=== PATIENT | female | born 1970 | race Caucasian/White ===

== ENCOUNTER 2021-03-10 12:24 | Day surgery (SDC) | payer BC ==
[2021-03-10] VITALS (9 sets, daily range): BP systolic 109–128; BP diastolic 57–69
[~2021-03-10] VITALS: Ht 162.6 cm; Wt 61.2 kg
[~2021-03-10 12:24] MED LIST: INDOCYANINE GREEN 25 MG/10 ML VIAL IV ONE; VALA500T41 PO; cefazolin/dext.iso 2gm/100ml IV ONE; famotidine 20mg tablet PO ONE; ringers solution, lacted 1,000 ML IV SCH; scopolamine 1mg/72 hr patch TD SCH
--- NOTE | 2021-03-10 13:34 | NUR ---
UNABLE TO SCAN BAR CODE ON SCOPOLAMINE PATCH, PHARMACY AWARE
[2021-03-10 13:42] LABS: BASOPHILS % (AUTO) 0.6 % (0-1); EOSINOPHILS # (AUTO) 0.2 X10'3 (0-0.9); EOSINOPHILS % (AUTO) 1.9 % (0-6); LYMPHOCYTES # (AUTO) 1.6 X10'3 (1.1-4.8); LYMPHOCYTES % (AUTO) 18.8 % (21-51); MEAN CORPUSCULAR HEMOGLOBIN 32.2 PG (27.0-31.0); MEAN CORPUSCULAR VOLUME 94.7 FL (78-98); MONOCYTES # (AUTO) 0.5 X10'3 (0-0.9); MONOCYTES % (AUTO) 5.9 % (2-12); NEUTROPHILS % (AUTO) 72.8 % (42-75); PRE OP HEMATOCRIT 41.4 % (35.0-45.0); PRE OP HEMOGLOBIN 14.1 g/dL (12.0-16.0); PRE OP PLATELET COUNT 225 X10'3 (140-440); RED BLOOD COUNT 4.37 X10'6 (4.20-5.60); RED CELL DISTRIBUTION WIDTH 12.8 % (11.5-14.5)
[2021-03-10 13:57] LABS: ALBUMIN 3.9 G/DL (3.4-5.0); ALBUMIN/GLOBULIN RATIO 1.3 (1.1-1.5); ALKALINE PHOSPHATASE 66 IU/L (46-116); BLOOD UREA NITROGEN 11 MG/DL (7-18); BUN/CREATININE RATIO 13.8 (6.6-38.0); CHLORIDE 106 MMOL/L (99-107); PRE OP ALT 25 U/L (30-65); PRE OP ANION GAP 9 (8-16); PRE OP AST 23 U/L (10-37); PRE OP BILIRUB, TOTAL 0.6 MG/DL (0.0-1.0); PRE OP GLUCOSE 87 MG/DL (70-104); PRE OP POTASSIUM 3.9 MMOL/L (3.4-5.1); PRE OP SODIUM 141 MMOL/L (135-145); TOTAL CARBON DIOXIDE 25.7 MMOL/L (24-32); eGFR 76 ML/MIN
[2021-03-10] MEDS ORDERED: acetaminophen 1,000mg/100ml IV 100 ML IV PRN (14:25)
[2021-03-10] MEDS ORDERED: meperidine/PF 25mg/ml syringe IV PRN ×3 (14:25)
[2021-03-10] MEDS ORDERED: hydrALAZINE 20mg/ml inj. IV PRN (14:25)
[2021-03-10] MEDS ORDERED: morphine 2 MG/ML inj. syringe IV PRN (14:25)
[2021-03-10] MEDS ORDERED: ondansetron/PF 4mg/2ml inj IV PRN (14:25)
[2021-03-10] MEDS ORDERED: ketorolac trometh. 30mg/ml inj. IV ONE (14:25)
[2021-03-10] MEDS ORDERED: ringers solution, lacted 1,000 ML IV SCH (14:25)
[2021-03-10] MEDS ORDERED: proCHLORperazine 10 MG/2 ml inj IV PRN (14:25)
[2021-03-10] MEDS ORDERED: morphine 4 MG/ML inj SYRINge IV PRN (14:25)
[2021-03-10] MEDS ORDERED: labetalol 20mg/4ml (5mg/ml) syringe IV PRN (14:25)
[2021-03-10 14:31] LABS: HCG SERUM QL NEGATIVE
[2021-03-10] MEDS ORDERED: LIDOcaine 1% 30ml preserv. free vial ONE (15:38)
[2021-03-10] MEDS ORDERED: BUPIVAcaine 0.5% inj/PF 30 ML ONE (15:38)
[2021-03-10] MEDS ORDERED: sevoflurane 250ml liquid IH ONE (15:45)
[2021-03-10] MEDS ORDERED: midazolam 1 mg/ML 2ml injection ONE (15:48)
[2021-03-10] MEDS ORDERED: fentaNYL /PF 50mcg/ml 5ml ampule ONE (16:03)
[2021-03-10] MEDS ORDERED: rocuronium 10mg/ml inj IV ONE (16:03)
[2021-03-10] MEDS ORDERED: LIDOcaine 2% (20mg/ml) 5ml vial ONE (16:03)
[2021-03-10] MEDS ORDERED: dexamethasone sod phosphate 4mg/ml inj. ONE (16:03)
[2021-03-10] MEDS ORDERED: propofol inj 20 ML IV ONE (16:03)
[2021-03-10] MEDS ORDERED: ondansetron/PF 4mg/2ml inj ONE (16:03)
[2021-03-10] MEDS ORDERED: neostigmine methylsulfate 1 MG/ML 10ml vial ONE (16:43)
[2021-03-10] MEDS ORDERED: glycopyrrolate 0.2mg/ml inj ONE (16:43)
[2021-03-10] MEDS ORDERED: oxyCODONE/APAP 5-325mg tablet PO PRN (17:00)
--- NOTE | 2021-03-10 17:01 | NUR ---
Received from OR via [facility] , accompanied by Anesthesiologist ADALGISA and report given by Anesthesiolgist. PATIENT WITH 20G PIV IN RIGHT UE RUNNING LR AT 100. 3 ABDOMINAL BANDAIDS THAT ARE CDI. 10L MASK ON WITH 100% SATURATIONS. Addendum: 03/10/21 at 1723 by Stanley Gresham RN, RN Amended: Links added.
--- NOTE | 2021-03-10 17:01 | NUR ---
Received from OR via , accompanied by Anesthesiologist DR DIANA and report given by Anesthesiolgist. PT PRESENTS WITH 18G RIGHT WRIST, 3 ABDOMINAL INCISIONS WITH SKIN GLUE, VSS. Addendum: 03/10/21 at 1707 by Sheila Gresham RN, RN Amended: Links added.
[2021-03-10] MEDS ORDERED: acetaminophen 325mg tablet PO PRN (17:10)
--- NOTE | 2021-03-10 18:11 | NUR ---
ALL DISCHARGE CRITERIA HAS BEEN MET. VSS, PAIN AT A TOLERABLE LEVEL, VOIDING AND ABLE TO SAFELY AMBULATE AND TRANSFER SELF. IV TAKEN OUT WITHOUT ANY COMPLICATIONS. ALL DISCHARGE INSTRUCTIONS COVERED WITH PATIENT AND ALL QUESTIONS ANSWERED. PATIENT TAKEN OUT VIA WHEELCHAIR TO PERSONAL VEHICLE WHERE FAMILY/FRIEND DROVE PATIENT HOME. VSS. DISCUSSED WHEN AND HOW TO TAKE OFF SCOPALAMINE PATCH. MOTHER AND SON PRESENT TO TAKE PATIENT HOME. Addendum: 03/10/21 at 1842 by Stanley Gresham RN, RN Amended: Links added.
== END 2021-03-10 18:11 | disposition home or self-care (01) ==
LOC: PAS 12:24
PROVIDERS: ATTEND Surgery
DX: K81.1 Chronic cholecystitis (principal); Z88.5 Allergy status to narcotic agent; Z98.890 Other specified postprocedural states; Z79.899 Other long term (current) drug therapy; Z72.89 Other problems related to lifestyle; Z83.3 Family history of diabetes mellitus; Z80.0 Family history of malignant neoplasm of digestive organs; Z80.51 Family history of malignant neoplasm of kidney; Z80.8 Family history of malignant neoplasm of other organs or systems
CPT/HCPCS: 36415; 47563; 80053; 84703; 85025; J1100; J2001; J2250; J2405; J2704; J2710; J3010; J7120; S2900; A4215; A4618; J3490